=== PATIENT | female | born 1975 | race Caucasian/White ===

== ENCOUNTER 2017-05-15 14:47 | Emergency (ER) | payer BC, OTHER ==
[~2017-05-15] VITALS: Ht 172.7 cm; Wt 60.0 kg
[~2017-05-15 14:47] MED LIST: CARB200 PO; LEVA750T PO
[2017-05-15 14:54] VITALS: BP 140/74; PULSE 85; RESP 16; TEMP 97.8; O2SAT 100
--- NOTE | 2017-05-15 15:03 | PD ---
HPI Chief Complaint: recurrent seizure Time Seen by Provider: 15:01 Travel History International Travel<30 days: No Contact w/Intl Traveler<30days: No History of Present Illness HPI Patient is a 41-year-old female with a history of recurrent seizures, has not had a seizure in some months process emergency department for a seizure this afternoon. The patient states she was lying in bed was just about to get out of bed when she thought she was about to have a seizure her laid her back down and she had a general tonic-clonic seizure lasting only for a few seconds. Postictal afterwards she is having return of normal mental status at this time. Patient states she's most be on Tegretol 20 mg twice a day and she' s been missing a couple of doses over the past few days. She states that she does have a small abrasion on her tongue but denies any other pain. Denies any headache chest pain shortness breath abdominal pain nausea vomiting diarrhea. Symptoms are moderate, resolved, context as above, associated signs symptoms as above. PFSH Past Medical History Cancer: No Cardiovascular Problems: No Diabetes: No Glaucoma: No Genitourinary: No Hepatitis: No Hiatal Hernia: No Hypertension: No Musculoskeletal: No Neurologic: Yes (SEIZURES) Psychiatric: No Reproductive: Yes (OVARIAN CYST) Respiratory: No Seizures: Yes Thyroid Disease: No : 2 Para: 2 Past Surgical History Section: Yes (1 ) Gynecologic Surgery: Yes (LAPRO CYSTS REMOVED FR OVARIES) Social History Alcohol Use: No Tobacco Use: No Substance Use: No Allergies-Medications (Allergen,Severity, Reaction): Coded Allergies: *MDRO Multi-Drug Resistant Organism (Unverified Adverse Reaction, Unknown , 05/15/17) MRSA Reported Meds & Prescriptions Reported Meds & Active Scripts Active Reported Tegretol (Carbamazepine) 200 Mg Tab 200 Mg PO BID Review of Systems Except as stated in HPI: all other systems reviewed are Neg Physical Exam Narrative GENERAL: Well-developed well-nourished no obvious distress SKIN: Focused skin assessment warm/dry. HEAD: Atraumatic. Normocephalic. No solorio signs no raccoons eye EYES: Pupils equal and round. No scleral icterus. No injection or drainage. ENT: No nasal bleeding or discharge. Mucous membranes pink and moist. There is a small tongue abrasion on the left side of the tongue nothing that requires repair. NECK: Trachea midline. No JVD. CARDIOVASCULAR: Regular rate and rhythm. No murmur appreciated. RESPIRATORY: No accessory muscle use. Clear to auscultation. Breath sounds equal bilaterally. GASTROINTESTINAL: Abdomen soft, non-tender, nondistended. Hepatic and splenic margins not palpable. MUSCULOSKELETAL: No obvious deformities. No clubbing. No cyanosis. No edema. NEUROLOGICAL: Awake and alert. Michell nerves II-12 grossly intact and nonfocal, 5 out of 5 strength in all 4 extremities. And relates with an even narrow based gait. No seizure activity seen in the emergency department. PSYCHIATRIC: Appropriate mood and affect; insight and judgment normal. Data Data Last Documented VS Vital Signs Date Time Temp Pulse Resp B/P (MAP) Pulse Ox O2 Delivery O2 Flow Rate FiO2 05/15/17 15:04 85 16 100 Room Air 05/15/17 14:54 97.8 140/74 (96) Orders Orders Carbamazepine (Tegretol) (05/15/17 15:25) Carbamazepine (Tegretol) (05/15/17 15:30) Electrocardiogram (05/15/17 15:11) Ed Discharge Order (05/15/17 16:45) Labs Laboratory Tests Test 05/15/17 15:42 Carbamazepine (Tegretol) Level 2.2 MCG/ML MDM Medical Decision Making Medical Screen Exam Complete: Yes Emergency Medical Condition: Yes Differential Diagnosis Recurrent seizure, Tegretol noncompliance, acute head injury unlikely, neck injury excluded by Nexus criteria. Narrative Course Patient admits to Tegretol noncompliance, she states that when she doesn't have a seizure for while she thinks she doesn't need the medicine. Subtherapeutic on Tegretol, no seizure activity in the emergency department, no indication for further workup, given a dose of Tegretol emerged permit offered a refill and states she has medicine at home she just needs to take it. Discussed follow-up with a neurologist she stable for discharge. Diagnosis Primary Impression: Recurrent seizures Referrals: Christo Rosales MD Additional Instructions: Take your Tegretol as prescribed, follow-up with your neurologist or Dr. Rosales Disposition: 01 DISCHARGE HOME Condition: Stable Wiley Villagomez MD May 15, 2017 15:03
[2017-05-15] MEDS ORDERED: TEGR200T PO (15:09)
[2017-05-15] MEDS ORDERED: carBAMazepine 200 MG TAB PO ONE (15:30)
--- NOTE | 2017-05-15 15:52 | EKG ---
Date Performed: 05/15/2017 Time Performed: 15:11:00 PTAGE: 41 years EKG: Sinus rhythm POSSIBLE RIGHT VENTRICULAR CONDUCTION DELAY BORDERLINE ECG NO PREVIOUS TRACING DOCTOR: Hudson Pedersen Interpretating Date/Time 05/15/2017 15:50:36
== END 2017-05-15 17:22 | disposition home or self-care (01) ==
LOC: NEPE 14:47
DX: G40.909 Epilepsy, unspecified, not intractable, without status epilepticus (principal); Z79.899 Other long term (current) drug therapy
CPT/HCPCS: 80156; 93005